=== PATIENT | male | born 2000 | race Caucasian/White ===

== ENCOUNTER 2023-03-24 00:20 | Emergency (ER) | payer OTHER ==
--- NOTE | 2023-03-24 00:20 | NUR ---
Dr. Lujan examining patient.
--- NOTE | 2023-03-24 00:25 | NUR ---
PT [facility] BLS. TAKEN TO BED 5
--- NOTE | 2023-03-24 00:30 | NUR ---
22 Y/O M BIB BLS PRESENTS WITH L FOOT PAIN DUE TO A INJURY FROM A METAL PLATE FALLING ON L FOOT WHILE AT WORK. PT STATED METAL PLATE WAS THIEN AND VINOD. PT STATED HE LIMPS WHEN WALKING WITH PAIN 06/13 DUE TO INJURY. PT DENIES NVD OR HEADACHES. PT A&OX4, SKIN INTACT, RESPIRATIONS EVEN AND UNLABORED. PMH-PT DENIES NKA
[2023-03-24] MEDS ORDERED: NAPR-54 PO (00:59)
--- NOTE | 2023-03-24 01:06 | NUR ---
MOTHER IS BEDSIDE
--- NOTE | 2023-03-24 01:11 | NUR ---
Patient discharged with v/s stable. Written and verbal after care instructions given and explained. Patient alert, oriented and verbalized understanding of instructions. Ambulatory with by parent. All questions addressed prior to discharge. ID band removed. Patient advised to follow up with PMD. Rx of NAPROXEN given. Opportunity to ask questions provided and answered.PT LEFT WITH CRUTCHES. DR. CORCORAN ORDERS REINFORCED
== END 2023-03-24 01:11 | disposition home or self-care (01) ==
LOC: MED 00:20
DX: S93.602A Unspecified sprain of left foot, initial encounter (principal); Z79.899 Other long term (current) drug therapy; W20.8XXA Other cause of strike by thrown, projected or falling object, initial encounter; Y93.89 Activity, other specified; Y92.89 Other specified places as the place of occurrence of the external cause; Y99.0 Civilian activity done for income or pay
CPT/HCPCS: 73620; 90471; 90715; 99283; Q0092